=== PATIENT | female | born 1950 | race Caucasian/White ===

== ENCOUNTER 2017-11-16 15:08 | Emergency (ER) | payer MEDICARE, OTHER ==
[~2017-11-16] VITALS: Ht 552.4 cm; Wt 63.4 kg
[~2017-11-16 15:08] MED LIST: DOXYLAMINE; LISI-600 PO; PYRIDOXINE
[2017-11-16] MEDS ORDERED: morphine 4 MG/ML inj SYRINge IV PRN (15:40)
[2017-11-16] MEDS ORDERED: normal saline 1000ML IV soln IVB ONE (15:40)
[2017-11-16] MEDS ORDERED: ondansetron/PF 4mg/2ml inj IV ONE (15:40)
[2017-11-16 15:45] LABS: BASOPHILS # (AUTO) 0.1 X10'3 (0-0.2); BASOPHILS % (AUTO) 0.9 % (0-1); EOSINOPHILS # (AUTO) 0.2 X10'3 (0-0.9); EOSINOPHILS % (AUTO) 1.8 % (0-6); HEMATOCRIT 45.7 % (35.0-45.0); HEMOGLOBIN 15.5 g/dl (12.0-16.0); LYMPHOCYTES # (AUTO) 3.3 X10'3 (1.1-4.8); LYMPHOCYTES % (AUTO) 36.7 % (21-51); MEAN CORPUSCULAR HEMOGLOBIN 31.3 PG (27.0-31.0); MEAN CORPUSCULAR VOLUME 91.9 FL (78-98); MEAN PLATELET VOLUME 8.3 FL (7.4-10.4); MONOCYTES # (AUTO) 0.6 X10'3 (0-0.9); MONOCYTES % (AUTO) 6.9 % (2-12); NEUTROPHILS # (AUTO) 4.9 X10'3 (1.8-7.7); NEUTROPHILS % (AUTO) 53.7 % (42-75); PLATELET COUNT 276 X10'3 (140-440); RED BLOOD COUNT 4.97 X10'6 (4.20-5.60); WHITE BLOOD COUNT 9.1 X10'3 (4.5-11.0)
[2017-11-16 16:01] LABS: ALANINE AMINOTRANSFERASE 66 U/L (12-78); ALBUMIN 4.2 G/DL (3.4-5.0); ALBUMIN/GLOBULIN RATIO 1.1 (1.1-1.5); ALKALINE PHOSPHATASE 62 IU/L (46-116); ANION GAP 11 (8-16); ASPARTATE AMINO TRANSFERASE 40 U/L (10-37); BILIRUBIN,TOTAL 0.5 MG/DL (0.1-1.0); BLOOD UREA NITROGEN 7 MG/DL (7-18); BUN/CREATININE RATIO 10.4 (6.6-38.0); CHLORIDE 99 MMOL/L (99-107); CREATININE 0.67 MG/DL (0.40-0.90); GLUCOSE 92 MG/DL (70-104); LIPASE 84 U/L (73-393); POTASSIUM 3.5 MMOL/L (3.5-5.1); SODIUM 137 MMOL/L (135-145); TOTAL CARBON DIOXIDE 27.5 MMOL/L (24-32); eGFR 88 ML/MIN
[2017-11-16 16:08] LABS: CLARITY,URINE CLEAR (Clear); COLOR,URINE STRAW (Yellow); GLUCOSE, URINE NEGATIVE (Neg); KETONES,URINE NEGATIVE (Neg); LEUKOCYTE ESTERASE ,URINE NEGATIVE (Neg); NITRITES, URINE NEGATIVE (Neg); OCCULT BLOOD,URINE NEGATIVE (Neg); PROTEIN,URINE NEGATIVE (Neg); UROBILINOGEN,URINE 0.2 E.U/dL (0.2-1.0)
[2017-11-16 16:09] LABS: UA COLLECTION TYPE CLN CATCH MIDSTREAM
[2017-11-16 16:12] LABS: PROTHROMBIN TIME 10.2 SECONDS (9.0-12.0)
[2017-11-16 16:15] VITALS: BP 150/75
[2017-11-16] MEDS ORDERED: bisacodyl 10mg suppository rectal RC STA (16:38)
[2017-11-16] MEDS ORDERED: lactulose 20gm/30ml cup PO ONE (16:40)
[2017-11-16] MEDS ORDERED: magnesium citrate 296ml oral solution PO ONE (16:40)
[2017-11-16] MEDS ORDERED: POLY17PO10 PO (16:53)
[2017-11-16] MEDS ORDERED: BISA10SU60 RC (16:53)
== END 2017-11-16 18:04 | disposition home or self-care (01) ==
LOC: ER 15:08
DX: K59.00 Constipation, unspecified (principal); R10.84 Generalized abdominal pain; G43.909 Migraine, unspecified, not intractable, without status migrainosus; Z79.899 Other long term (current) drug therapy
CPT/HCPCS: 36415; 74176; 80053; 81003; 83605; 83690; 85025; 85610; 87040; 96374; 96375; 99285; J2270; J2405; J7030

== ENCOUNTER 2017-11-20 10:40 | Emergency (ER) | payer MEDICARE, OTHER ==
[~2017-11-20] VITALS: Ht 157.5 cm; Wt 61.0 kg
[~2017-11-20 10:40] MED LIST changes: +BISA10SU60 RC; +POLY17PO10 PO
[2017-11-20 11:51] LABS: BASOPHILS % (AUTO) 0.5 % (0-1); EOSINOPHILS # (AUTO) 0.1 X10'3 (0-0.9); EOSINOPHILS % (AUTO) 1.2 % (0-6); HEMATOCRIT 42.6 % (35.0-45.0); HEMOGLOBIN 14.8 g/dl (12.0-16.0); LYMPHOCYTES % (AUTO) 25.4 % (21-51); MEAN CORPUSCULAR HEMOGLOBIN 31.6 PG (27.0-31.0); MEAN CORPUSCULAR HGB CONC 34.7 % (33.0-36.5); MEAN CORPUSCULAR VOLUME 91.1 FL (78-98); MEAN PLATELET VOLUME 8.2 FL (7.4-10.4); MONOCYTES # (AUTO) 0.6 X10'3 (0-0.9); MONOCYTES % (AUTO) 6.9 % (2-12); NEUTROPHILS # (AUTO) 5.3 X10'3 (1.8-7.7); PLATELET COUNT 254 X10'3 (140-440); RED BLOOD COUNT 4.67 X10'6 (4.20-5.60); RED CELL DISTRIBUTION WIDTH 13.1 % (11.5-14.5); WHITE BLOOD COUNT 8.1 X10'3 (4.5-11.0)
[2017-11-20 12:06] LABS: CLARITY,URINE CLEAR (Clear); COLOR,URINE YELLOW (Yellow); GLUCOSE, URINE NEGATIVE (Neg); KETONES,URINE NEGATIVE (Neg); LEUKOCYTE ESTERASE ,URINE NEGATIVE (Neg); NITRITES, URINE NEGATIVE (Neg); OCCULT BLOOD,URINE NEGATIVE (Neg); PH,URINE 5.5 (4.8-8.0); PROTEIN,URINE NEGATIVE (Neg); UROBILINOGEN,URINE 0.2 E.U/dL (0.2-1.0)
[2017-11-20 12:10] LABS: ALANINE AMINOTRANSFERASE 56 U/L (12-78); ALBUMIN 3.7 G/DL (3.4-5.0); ALKALINE PHOSPHATASE 55 IU/L (46-116); ANION GAP 8 (8-16); ASPARTATE AMINO TRANSFERASE 36 U/L (10-37); BILIRUBIN,TOTAL 0.5 MG/DL (0.1-1.0); BLOOD UREA NITROGEN 3 MG/DL (7-18); BUN/CREATININE RATIO 5.1 (6.6-38.0); CALCIUM 8.6 MG/DL (8.5-10.1); CHLORIDE 93 MMOL/L (99-107); CREATININE 0.59 MG/DL (0.40-0.90); GLUCOSE 99 MG/DL (70-104); POTASSIUM 4.2 MMOL/L (3.5-5.1); SODIUM 129 MMOL/L (135-145); TOTAL CARBON DIOXIDE 27.8 MMOL/L (24-32); TOTAL PROTEIN 7.3 G/DL (6.4-8.2); UA COLLECTION TYPE CLN CATCH MIDSTREAM; eGFR > 90 ML/MIN
[2017-11-20 12:22] VITALS: BP 157/82
[2017-11-20 13:44] LABS: HEMOGLOBIN A1C 5.5 % (4.5-6.2)
== END 2017-11-20 17:04 | disposition home or self-care (01) ==
LOC: ER 10:41
DX: R42 Dizziness and giddiness (principal); E87.1 Hypo-osmolality and hyponatremia; G43.909 Migraine, unspecified, not intractable, without status migrainosus; I10 Essential (primary) hypertension; Z79.899 Other long term (current) drug therapy
CPT/HCPCS: 36415; 80053; 81003; 83036; 84443; 85025; 93005; 99285

== ENCOUNTER 2023-12-24 21:03 | Inpatient (IN) | payer BC, MEDICARE, OTHER ==
[~2023-12-24] VITALS: Ht 160 cm; Wt 70.0 kg
[~2023-12-24 21:03] MED LIST changes: -LISI-600 PO; +LISI20TA28 PO; -POLY17PO10 PO
[2023-12-24 21:51] LABS: BASOPHILS # (AUTO) 0.1 X10'3 (0-0.2); BASOPHILS % (AUTO) 0.6 % (0-1); EOSINOPHILS # (AUTO) 0.2 X10'3 (0-0.9); EOSINOPHILS % (AUTO) 2.4 % (0-6); HEMATOCRIT 45.2 % (35.0-45.0); HEMOGLOBIN 15.2 g/dl (12.0-16.0); LYMPHOCYTES % (AUTO) 29.2 % (21-51); MEAN CORPUSCULAR HEMOGLOBIN 30.1 PG (27.0-31.0); MEAN CORPUSCULAR HGB CONC 33.6 g/dL (33.0-36.5); MEAN CORPUSCULAR VOLUME 89.6 FL (78-98); MEAN PLATELET VOLUME 8.6 FL (7.4-10.4); MONOCYTES # (AUTO) 0.9 X10'3 (0-0.9); MONOCYTES % (AUTO) 8.9 % (2-12); NEUTROPHILS % (AUTO) 58.9 % (42-75); PLATELET COUNT 274 X10'3 (140-440); RED BLOOD COUNT 5.05 X10'6 (4.20-5.60); RED CELL DISTRIBUTION WIDTH 13.6 % (11.5-14.5); WHITE BLOOD COUNT 10.2 X10'3 (4.5-11.0)
[2023-12-24 22:29] LABS: ALANINE AMINOTRANSFERASE 26 U/L (12-78); ALBUMIN 3.7 G/DL (3.4-5.0); ALBUMIN/GLOBULIN RATIO 0.9 (1.1-1.5); ALKALINE PHOSPHATASE 71 IU/L (46-116); ANION GAP 9 (8-16); ASPARTATE AMINO TRANSFERASE 17 U/L (10-37); BILIRUBIN,TOTAL 0.3 MG/DL (0.1-1.0); BLOOD UREA NITROGEN 12 MG/DL (7-18); BUN/CREATININE RATIO 17.4 (10.0-20.0); CALCIUM 9.1 MG/DL (8.5-10.1); CHLORIDE 100 MMOL/L (99-107); CREATININE 0.69 MG/DL (0.40-0.90); GLUCOSE 100 MG/DL (70-104); POTASSIUM 3.7 MMOL/L (3.5-5.1); SODIUM 136 MMOL/L (135-145); TOTAL CARBON DIOXIDE 26.7 MMOL/L (24-32); TOTAL PROTEIN 7.6 G/DL (6.4-8.2); eCRCL 58 ML/MIN; eGFR 83 ML/MIN
[2023-12-25] VITALS (15 sets, daily range): BP systolic 109–172; BP diastolic 54–79; PULSE 57–91; RESP 12–20; TEMP 97.9–98; O2SAT 94–98
[2023-12-25] MEDS: lisinopril 10 MG tablet PO ONE ×2 (00:18→01:06)
[2023-12-25] MEDS: aspirin 81mg tab.chew PO SCH (00:22)
[2023-12-25] MEDS: LORazepam 1 MG tablet PO ONE (00:22)
[2023-12-25] MEDS ORDERED: potassium Cl 20 mEq SR tablet PO PRN ×2 (01:15)
[2023-12-25] MEDS ORDERED: magnesium sulf-water 2g/50mL 50 ML IV PRN (01:15)
[2023-12-25] MEDS: normal saline 1000ml 1,000 ML IV SCH ×2 (01:15→17:26)
[2023-12-25] MEDS ORDERED: magnesium sulf-water 4G/100mL 100 ML IV PRN (01:15)
[2023-12-25] MEDS ORDERED: magnesium hydroxide 30ml (MOM) UD suspension PO PRN (01:15)
[2023-12-25] MEDS ORDERED: mag hydrox/Alum hydrox/simeth 30ml oral suspension PO PRN (01:15)
[2023-12-25] MEDS ORDERED: magnesium Cl slow-release 64mg tablet PO PRN (01:15)
[2023-12-25] MEDS ORDERED: potassium Cl 40MEQ/1/2NS 520ml 520 ML IV PRN (01:15)
[2023-12-25] MEDS ORDERED: acetaminophen 325mg tablet PO PRN (01:15)
[2023-12-25] MEDS ORDERED: ondansetron/PF 4mg/2ml inj IV PRN ×2 (01:15→17:20)
[2023-12-25] MEDS ORDERED: aminophylline 250mg/10ml inj. IV PRN (01:25)
[2023-12-25] MEDS ORDERED: metoprolol tartrate 1mg/ml inj IV PRN (01:25)
[2023-12-25] MEDS ORDERED: nitroGLYCERIN 0.4mg SUBLingual tab SL PRN ×2 (01:25→17:20)
[2023-12-25] MEDS: amLODIPine 5mg tablet PO ONE (01:49)
[2023-12-25 03:27] LABS: CHOL/HDL RATIO 5.1 (0.00-4.99); CHOLESTEROL 258 MG/DL (0-200); FREE T4 (FREE THYROXINE) 0.85 NG/DL (0.73-1.40); HDL CHOLESTEROL 51 MG/DL (35-60); LDL CHOLESTEROL 181 MG/DL (50-100); POTASSIUM 3.9 MMOL/L (3.5-5.1); THYROID STIMULATING HORMONE 5.58 ulU/ml (0.34-4.50); TRIGLYCERIDES 122 MG/DL (20-135)
[2023-12-25 03:39] LABS: HEMOGLOBIN A1C 5.5 % (4.5-6.2)
[2023-12-25] MEDS ORDERED: labetalol 20mg/4ml (5mg/ml) syringe IV ONE (03:50)
[2023-12-25] MEDS: labetalol 20mg/4ml (5mg/ml) syringe IV ONE (04:30)
[2023-12-25] MEDS: LORazepam 2 mg/ml vial IV ONE (04:37)
[2023-12-25 06:20] LABS: BILIRUBIN,URINE NEGATIVE (Neg); CLARITY,URINE CLEAR (Clear); COLOR,URINE STRAW (Yellow); GLUCOSE, URINE NEGATIVE (Neg); KETONES,URINE NEGATIVE (Neg); LEUKOCYTE ESTERASE ,URINE NEGATIVE (Neg); NITRITES, URINE NEGATIVE (Neg); OCCULT BLOOD,URINE NEGATIVE (Neg); PROTEIN,URINE NEGATIVE (Neg); UROBILINOGEN,URINE 0.2 E.U/dL (0.2-1.0)
[2023-12-25 06:21] LABS: URINE AMPHETAMINE SCREEN NEGATIVE (Neg); URINE BARBITUATE SCREEN NEGATIVE (Neg); URINE BENZODIAZEPINES SCREEN NEGATIVE (Neg); URINE CANNABINOID SCREEN NEGATIVE (Neg); URINE COCAINE SCREEN NEGATIVE (Neg); URINE METHADONE SCREEN NEGATIVE (Neg); URINE OPIATE SCREEN NEGATIVE (Neg); URINE PHENCYCLIDINE SCREEN NEGATIVE (Neg)
[2023-12-25 06:22] LABS: UA COLLECTION TYPE URINAL
[2023-12-25] MEDS ORDERED: aspirin 81mg, enteric-coated 1 TAB TABLET.DR PO SCH (08:00)
[2023-12-25] MEDS ORDERED: metoprolol succinate 25mg (24-HOUR) SR. Tablet PO SCH (08:00)
[2023-12-25] MEDS: K and/or MAG REPLACEMENT MC SCH (08:00)
[2023-12-25] MEDS: atorvastatin 20mg tablet PO SCH (09:10)
[2023-12-25] MEDS: regadenoson 0.4mg/5ml syringe IV PRN (12:21)
[2023-12-25] MEDS ORDERED: ATOR20TA66 PO (15:06)
[2023-12-25] MEDS ORDERED: LEVO25TA7 PO (15:06)
[2023-12-25] MEDS ORDERED: ASPI81TA53 PO (15:06)
[2023-12-25] MEDS ORDERED: LOSA50TA64 PO (15:06)
[2023-12-25] MEDS ORDERED: fentaNYL/PF 50MCG/1 ML 2ML syringe ONE (15:31)
[2023-12-25] MEDS ORDERED: iohexol 350MG/ML 100ml bottle IV ONE (15:31)
[2023-12-25] MEDS ORDERED: heparin 1,000unit/ml 10ml vial 10 ML ONE (15:31)
[2023-12-25] MEDS ORDERED: LIDOcaine 1% 30ml preserv. free vial ONE (15:31)
[2023-12-25] MEDS ORDERED: midazolam 1 mg/ML 2ml injection ONE (15:31)
[2023-12-25] MEDS ORDERED: iohexol 350 MG/ML 50ML vial IV ONE (15:32)
[2023-12-25] MEDS ORDERED: diphenhydrAMINE 50 mg/ml inj ONE (16:03)
[2023-12-25] MEDS ORDERED: hydrALAZINE 20mg/ml inj. IV ONE (16:26)
[2023-12-25] MEDS ORDERED: HYDROcodone/acetaminophen 10/325mg tab PO PRN (17:20)
[2023-12-25] MEDS ORDERED: HYDROcodone/acetaminophen 5mg/325mg tablet PO PRN (17:20)
[2023-12-25] MEDS ORDERED: OXAZEpam 15mg capsule PO PRN (17:20)
[2023-12-25] MEDS ORDERED: HYDROmorphone 1 mg/ml syringe IV PRN (17:20)
[2023-12-25] MEDS ORDERED: proCHLORperazine 10 MG/2 ml inj IV PRN (17:20)
[2023-12-25] MEDS: enoxaparin 40mg/0.4ml syringe SQ SCH (20:27)
[2023-12-26] VITALS: BP 138/64; PULSE 68; RESP 18; O2SAT 97
[2023-12-26 04:00] VITALS: BP 127/62; PULSE 97; RESP 22; TEMP 97.9; O2SAT 98
[2023-12-26 05:41] LABS: BASOPHILS % (AUTO) 0.2 % (0-1); EOSINOPHILS # (AUTO) 0.3 X10'3 (0-0.9); EOSINOPHILS % (AUTO) 2.6 % (0-6); HEMATOCRIT 42.9 % (35.0-45.0); HEMOGLOBIN 14.6 g/dl (12.0-16.0); LYMPHOCYTES % (AUTO) 20.4 % (21-51); MEAN CORPUSCULAR HEMOGLOBIN 30.6 PG (27.0-31.0); MEAN CORPUSCULAR VOLUME 89.9 FL (78-98); MEAN PLATELET VOLUME 8.5 FL (7.4-10.4); MONOCYTES # (AUTO) 1.1 X10'3 (0-0.9); MONOCYTES % (AUTO) 11.1 % (2-12); NEUTROPHILS # (AUTO) 6.6 X10'3 (1.8-7.7); NEUTROPHILS % (AUTO) 65.7 % (42-75); PLATELET COUNT 267 X10'3 (140-440); RED BLOOD COUNT 4.77 X10'6 (4.20-5.60); RED CELL DISTRIBUTION WIDTH 13.8 % (11.5-14.5)
[2023-12-26 05:55] LABS: APTT 27 SECONDS (22-32); PROTHROMBIN TIME 10.5 SECONDS (9.0-12.0)
[2023-12-26 06:00] VITALS: BP 102/58; PULSE 61; RESP 16; TEMP 97.6; O2SAT 97
[2023-12-26 06:12] LABS: ALANINE AMINOTRANSFERASE 25 U/L (12-78); ALBUMIN 3.2 G/DL (3.4-5.0); ALBUMIN/GLOBULIN RATIO 0.9 (1.1-1.5); ALKALINE PHOSPHATASE 57 IU/L (46-116); ANION GAP 10 (8-16); ASPARTATE AMINO TRANSFERASE 15 U/L (10-37); BILIRUBIN,TOTAL 0.4 MG/DL (0.1-1.0); BLOOD UREA NITROGEN 9 MG/DL (7-18); BUN/CREATININE RATIO 15.3 (10.0-20.0); CALCIUM 8.6 MG/DL (8.5-10.1); CHLORIDE 105 MMOL/L (99-107); CREATININE 0.59 MG/DL (0.40-0.90); GLUCOSE 93 MG/DL (70-104); MAGNESIUM 1.9 MG/DL (1.5-2.4); PHOSPHORUS 3.4 MG/DL (2.3-4.5); POTASSIUM 3.7 MMOL/L (3.5-5.1); SODIUM 140 MMOL/L (135-145); TOTAL CARBON DIOXIDE 24.6 MMOL/L (24-32); TOTAL PROTEIN 6.8 G/DL (6.4-8.2); eCRCL 68 ML/MIN; eGFR > 90 ML/MIN
[2023-12-26] MEDS: acetaminophen 325mg tablet PO PRN (06:32)
[2023-12-26 08:00] VITALS: RESP 16; O2SAT 97
[2023-12-26] MEDS: aspirin 81mg tab.chew PO SCH (08:14)
[2023-12-26] MEDS: levoTHYROXINE 25mcg tablet PO SCH (08:16)
[2023-12-26] MEDS: losartan 50mg tablet PO SCH (08:22)
[2023-12-26 11:00] VITALS: BP 121/48; PULSE 72; RESP 16; TEMP 98.6; O2SAT 95
== END 2023-12-26 15:58 | disposition home or self-care (01) | DRG 287 ==
LOC: ER 21:04 → ED HOLD 12-25 01:24 → PCU 3S 12-25 16:55
PROVIDERS: ADMIT Surgery; ATTEND Internal Medicine
PROC: 4A02XM4 Measurement of Cardiac Total Activity, External Approach (ICD-10-PCS; principal; 2023-12-25)
PROC: 4A023N7 Measurement of Cardiac Sampling and Pressure, Left Heart, Percutaneous Approach (ICD-10-PCS; 2023-12-25)
PROC: 3E033HZ Introduction of Radioactive Substance into Peripheral Vein, Percutaneous Approach (ICD-10-PCS; 2023-12-25)
PROC: B2111ZZ Fluoroscopy of Multiple Coronary Arteries using Low Osmolar Contrast (ICD-10-PCS; 2023-12-25)
PROC: B2151ZZ Fluoroscopy of Left Heart using Low Osmolar Contrast (ICD-10-PCS; 2023-12-25)
PROC: B41F1ZZ Fluoroscopy of Right Lower Extremity Arteries using Low Osmolar Contrast (ICD-10-PCS; 2023-12-25)
DX: I25.119 Atherosclerotic heart disease of native coronary artery with unspecified angina pectoris (principal); I16.0 Hypertensive urgency; Z20.822 Contact with and (suspected) exposure to COVID-19; E03.9 Hypothyroidism, unspecified; E78.5 Hyperlipidemia, unspecified; F41.9 Anxiety disorder, unspecified; I10 Essential (primary) hypertension; B19.20 Unspecified viral hepatitis C without hepatic coma; G43.909 Migraine, unspecified, not intractable, without status migrainosus; Z79.52 Long term (current) use of systemic steroids; Z79.899 Other long term (current) drug therapy
CPT/HCPCS: 36415; 71045; 78452; 80053; 80061; 80305; 81003; 83036; 83735; 84100; 84132; 84439; 84443; 84484; 85025; 85610; 85730; 87081; 87502; 87503; 87811; 93005; 93017; 93306; 93458; 99152; 99153; 99285; A4615; A6258; A9500; G0378; J0360; J1200; J1644; J1650; J2060; J2250; J2785; J3010; J3490; J7030; Q9967